=== PATIENT | female | born 1965 | race Caucasian/White ===

== ENCOUNTER → 2019-03-03 11:55 | Outpatient (CLI) | payer OTHER, SELFPAY ==
--- NOTE | ~2019-03-03 | XR_ITS ---
XR hip RT min 2V DATE: 03/03/2019 12:16 INDICATION: Right hip pain TECHNIQUE: AP, lateral, crosstable lateral views of right hip COMPARISON: None FINDINGS: No fracture or dislocation, avascular necrosis or bone destruction. The right hip joint spa ce is well preserved. The pubic symphysis and right sacroiliac joint are intact. Common and superficial femoral as well as abdominal aortic, common iliac and external iliac artery ca lcifications are noted. IMPRESSION: Negative right hip Reviewed, dictated and finalized at location B. IRONER HAND IMPRESSION: Negative right hip
--- NOTE | ~2019-03-03 | XR_ITS ---
XR chest 2V DATE: 03/03/2019 12:16 INDICATION: Cough for one week TECHNIQUE: PA and lateral views COMPARISON: 07/14/2018 2 view chest FINDINGS: Normal heart size. No hilar or mediastinal enlargement. No pulmonary infiltrate or consolid ation, pleural effusion, pulmonary vascular congestion, adenopathy or pneumothorax is detected. IMPRESSION: No active cardiopulmonary disease Reviewed, dictated and finalized at location B. ING HEAD TENDER
== END ==
PROVIDERS: PCP Emergency Medicine; Visit Provider Emergency Medicine
DX: R05 Cough (principal); M25.551 Pain in right hip
CPT/HCPCS: 71046; 73502

== ENCOUNTER 2019-03-22 12:19 | Outpatient (CLI) | payer OTHER, SELFPAY ==
--- NOTE | ~2019-03-22 | MM_ITS ---
EXAMINATION: MM diagnostic mammo unilat RT HISTORY: Architectural distortion suggested on screening 02/16/2019 mammogram examination TECHNIQUE: Additional 3-D tomosynthesis images of the right breast were performed and synthetic 2-D i mages were generated. CAD analysis was submitted and interpreted. COMPARISON: 02/16/2019 bilateral digital screening mammogram FINDINGS: No reproducible mass or architectural distortion. Minimal benign calcification. No skin thi ckening or retraction. IMPRESSION: 1. No mammographic evidence of malignancy 2. Routine mammographic screening is recommended. BI-RADS Category 2: Benign finding(s). Reviewed, dictated and finalized at location A. ERCIAL ARTIST
== END 2019-03-22 12:20 | disposition home or self-care (01) ==
LOC: ANHIMG 12:20
PROVIDERS: PCP Emergency Medicine; Visit Provider Emergency Medicine
DX: R92.8 Other abnormal and inconclusive findings on diagnostic imaging of breast (principal)
CPT/HCPCS: 77061; 77065; G0279

== ENCOUNTER 2020-04-14 14:55 | Outpatient (CLI) | payer OTHER, SELFPAY ==
--- NOTE | ~2020-04-14 | MM_ITS ---
EXAMINATION: MM screening levar BI w juli HISTORY: Screening TECHNIQUE: Craniocaudal and mediolateral oblique 3-D tomosynthesis images were obtained and synthetic 2-D images were generated. CAD analysis was submitted and interpreted. COMPARISON: Comparison to multiple prior studies sequentially, with oldest reviewed study dated 10/26. BREAST PARENCHYMAL COMPOSITION: The breasts are heterogeneously dense, which may obscure small masses . FINDINGS: There is no evidence of suspicious mass, calcification, or architectural distortion to sugg est malignancy in either breast. There has been no suspicious interval change. IMPRESSION: 1. No mammographic evidence of malignancy. 2. Recommend routine screening mammography in one year. BI-RADS Category 1: Negative Reviewed, dictated and finalized at location A. N TEACHER
== END 2020-04-14 14:56 | disposition home or self-care (01) ==
LOC: ANHIMG 14:56
PROVIDERS: PCP Emergency Medicine; Visit Provider Emergency Medicine
DX: Z12.31 Encounter for screening mammogram for malignant neoplasm of breast (principal)
CPT/HCPCS: 77063; 77067

== ENCOUNTER 2021-05-18 15:29 | Outpatient (CLI) | payer OTHER, SELFPAY ==
--- NOTE | ~2021-05-18 | MM_ITS ---
EXAMINATION: MM screening levar BI w juli HISTORY: Screening TECHNIQUE: Craniocaudal and mediolateral oblique 3-D tomosynthesis images were obtained and synthetic 2-D images were generated. CAD analysis was submitted and interpreted. COMPARISON: Comparison to multiple prior studies sequentially, with oldest reviewed study dated 10/26. BREAST PARENCHYMAL COMPOSITION: The breasts are heterogenously dense, which may obscure small masses FINDINGS: There is no evidence of suspicious mass, calcification, or architectural distortion to sugg est malignancy in either breast. There has been no suspicious interval change. IMPRESSION: 1. No mammographic evidence of malignancy. 2. Recommend routine screening mammography in one year. BI-RADS Category 1: Negative Reviewed, dictated and finalized at location A.
== END 2021-05-18 15:30 | disposition home or self-care (01) ==
LOC: ANHIMG 15:31
PROVIDERS: PCP Emergency Medicine; Visit Provider Emergency Medicine
DX: Z12.31 Encounter for screening mammogram for malignant neoplasm of breast (principal)
CPT/HCPCS: 77063; 77067

== ENCOUNTER → 2021-10-20 08:47 | Outpatient (CLI) | payer OTHER, SELFPAY ==
--- NOTE | ~2021-10-20 | XR_ITS ---
XR elbow LT min 3V DATE: 10/20/2021 09:21 INDICATION: Fall down steps. Left elbow injury, pain TECHNIQUE: 3 views COMPARISON: None FINDINGS: No fracture or dislocation or joint effusion. No periosteal reaction or bone destruction. IMPRESSION: Negative Reviewed, dictated and finalized at location A. IMPRESSION: Negative
--- NOTE | ~2021-10-20 | XR_ITS ---
XR shoulder LT min 2V DATE: 10/20/2021 09:21 INDICATION: Fall down steps. Left shoulder pain TECHNIQUE: 4 views COMPARISON: None FINDINGS: There is osteopenia. Normal alignment at the acromioclavicular and glenohumeral joints. No fracture or dislocation, perios teal reaction or bone destruction. IMPRESSION: No fracture or dislocation Reviewed, dictated and finalized at location A. IMPRESSION: No fracture or dislocation
--- NOTE | ~2021-10-20 | XR_ITS ---
XR cervical spine 4-5V DATE: 10/20/2021 09:21 INDICATION: Neck, left shoulder and left elbow pain following a fall 2 months ago TECHNIQUE: AP, open-mouth, lateral and swimmer views COMPARISON: None FINDINGS: There is straightening of the supraspinatus may be due to muscle spasm. C1 and C2 are normally aligned and the odontoid process is intact. No fracture or dislocation or lock ed facet or prevertebral soft tissue swelling. There is moderate loss of interspace height at C3-4. There is moderately severe degenerative disc disease and mild posterior spurring at C4-5. Moderately prominent degenerative disc disease at C5-6. Moderately severe degenerative disease at C6-7. There is uncovertebral joint spurring in the mid and lower cervical spine. IMPRESSION: Straightening of the cervical spine which may be due to muscle spasm Multilevel degenerative disc disease, most pronounced at C4-5 and C6-7 Uncovertebral joint spurring of the mid and lower cervical spine Reviewed, dictated and finalized at location A. IMPRESSION: Straightening of the cervical spine which may be due to muscle spas m Multilevel degenerative disc disease, most pronounced at C4-5 and C6-7 Uncovertebral joint spurring of the mid and lower cervical spine
== END ==
PROVIDERS: PCP Emergency Medicine; Visit Provider Emergency Medicine
DX: M25.512 Pain in left shoulder (principal); M25.522 Pain in left elbow; M50.322 Other cervical disc degeneration at C5-C6 level; M50.323 Other cervical disc degeneration at C6-C7 level
CPT/HCPCS: 72050; 73030; 73080

== ENCOUNTER → 2021-11-23 15:08 | Outpatient (CLI) | payer OTHER, SELFPAY ==
--- NOTE | ~2021-11-23 | XR_ITS ---
EXAMINATION: XR forearm RT 2V, XR wrist RT min 3V, XR hand RT min 3V DATE: 11/23/2021 15:24 INDICATION: Right forearm, hand and wrist pain TECHNIQUE: 1. AP an lateral views of the right forearm were obtained. 2. Posteroanterior, ulnar deviation, oblique, and lateral views of the right wrist were obtained. 3. Dorsal palmar, oblique and lateral views of the right hand were obtained. COMPARISON: None. FINDINGS: Diffuse osteopenia. Normal alignment at the right elbow, wrist and hand. No fracture identified. Mil d polyarticular osteoarthritis at the distal interphalangeal joints. Remaining joint spaces in the mo re proximal hand, wrist and elbow are relatively preserved. No erosions. No elbow joint effusion. Sof t tissues are unremarkable. IMPRESSION: 1. Diffuse osteopenia and mild osteoarthritis at the distal interphalangeal joints. Otherwise unremar kable right forearm, wrist and hand radiographs. Reviewed, dictated and finalized at location B. IMPRESSION: 1. Diffuse osteopenia and mild osteoarthritis at the distal interphalangeal serina nts. Otherwise unremarkable right forearm, wrist and hand radiographs. IMPRESSION: 1. Diffuse osteopenia and mild osteoarthritis at the distal interphalangeal serina nts. Otherwise unremarkable right forearm, wrist and hand radiographs.
== END ==
PROVIDERS: PCP Emergency Medicine; Visit Provider Emergency Medicine
DX: M19.041 Primary osteoarthritis, right hand (principal); M85.841 Other specified disorders of bone density and structure, right hand
CPT/HCPCS: 73090; 73110; 73130

== ENCOUNTER 2022-01-11 08:56 | Outpatient (CLI) | payer OTHER, SELFPAY ==
--- NOTE | ~2022-01-11 | DEXA_ITS ---
Bone Density Report Name: ARPAN MARCUM Age: 56 Sex: Female Ethnicity: White Date of : 1965 Indication: postmenopausal; screening for osteoporosis; history of glucocorticoids; Referring Provider: ALBINA JOHNSON Study: Bone densitometry was performed. Exam Date: January 11, 2022 Accession number: [id number] Bone Density: Region BMD T-score Z-score Classification AP Spine(L1, L2, L3) 0.829 -1.7 -0.6 Osteopenia Femoral Neck (Left) 0.623 -2.0 -0.9 Osteopenia Total Hip (Left) 0.683 -2.1 -1.3 Osteopenia Femoral Neck (Right) 0.598 -2.3 -1.1 Osteopenia Total Hip (Right) 0.636 -2.5 -1.7 Osteoporosis Total Hip Mean 0.660 -2.3 -1.5 Osteopenia World Health Organization criteria for BMD impression classify patients as: Normal (T-score at or above -1.0), Osteopenia (T-score between -1.0 and -2.5), or Osteoporosis (T-score at or below -2.5). 10-year Fracture Risk: FRAX not reported because: Some T-score for Spine Total or Hip Total or Femoral Neck at or below -2.5 Clinical Information Provided by Patient: Smokes Has taken Glucocorticoids Has used the following medications: Vitamin D Patient maximum height was 62 Menopause Age: 46 Drinks caffeinated beverages Onset of menses at age 12 Number of children 0 Impression: The patient has osteoporosis, based on the Right Total Hip T-score. The patient has risk factors, including: smoking, history of glucocorticoid therapy. Discussion: INCREASED RISK OF FRACTURE. BONE DENSITY IS UNDESIRABLY LOW AT ONE OR MORE SKELETAL SITES, CONSISTENT WITH POSTMENOPAUSAL OSTEOPOROSIS. This patient's lowest T-score meets the World Health Organization's (WHO) criteria for osteoporosis at one or more sites (T-score -2.5 or below). In untreated patients, the risk of osteoporotic fracture increases approximately two-fold for each 1.0 SD decrease in T-score. Low bone density is not the only risk factor for fracture; also consider factors such as patient's age, frailty or poor health, risk of falling, risk of injury, previous osteoporotic fracture, family history of osteoporosis, cigarette smoking, low body weight, etc. Not everyone with low bone mineral density has osteoporosis; osteomalacia and other metabolic bone disorders should also be considered. Patients who have osteoporosis should be evaluated for specific diseases and conditions (secondary causes) that may cause or contribute to bone loss. The [place] [employer]ocrin[employer] (AACE) and National Osteoporosis Foundation (NOF) recommend pharmacologic intervention for all postmenopausal women whose T-score is in this range. The patient should follow a healthful lifestyle (good nutrition with adequate calcium and vitamin D, and appropriate weight-bearing exercise). Follow-Up: Consider a repeat BMD and Vertebr
== END 2022-01-11 08:57 | disposition home or self-care (01) ==
PROVIDERS: PCP Emergency Medicine; Visit Provider Emergency Medicine
DX: M85.88 Other specified disorders of bone density and structure, other site (principal); M85.852 Other specified disorders of bone density and structure, left thigh; M85.851 Other specified disorders of bone density and structure, right thigh
CPT/HCPCS: 77080

== ENCOUNTER 2022-01-12 10:05 | Emergency (ER) | payer OTHER, SELFPAY ==
--- NOTE | 2022-01-12 10:08 | ED.BACK ---
HPI - Back Pain/Injury General Chief Complaint: Back Pain/Injury Stated Complaint: back pain Time Seen by Provider: 01/12/22 11:19 Source: patient and RN notes reviewed Mode of arrival: ambulatory Limitations: no limitations History of Present Illness HPI Narrative: 56-year-old female presents concern pain between right neck and shoulder. She denies any injury or trauma. She she had problems with her back in the past, she is under the care of her doctor for this. She reports this pain has been happening for 2-3 days. She reports has similar pain in the past. She reports she can not take NSAIDs due to history of GI bleeding. She denies weakness in any extremity. Denies fever, headaches. MD elicited complaint: back pain Related Data Home Medications Medication Instructions Recorded Confirmed simvastatin 20 mg tablet 20 mg PO HS 02/22/19 01/12/22 Allergies Allergy/AdvReac Type Severity Reaction Status Date / Time aspirin Allergy Unknown GI upset Verified 01/12/22 10:55 Penicillins Allergy Unknown GI upset Verified 01/12/22 10:55 NSAIDS (Non-Steroidal AdvReac Severe Gastrointestinal Verified 01/12/22 11:26 Anti-Inflamma Upset Review of Systems Review of Systems: CONSTITUTIONAL: Denies malaise, chills, sweats, or fever. CARDIOVASCULAR: Denies chest pain, palpitations, or edema. RESPIRATORY: Denies cough or dyspnea. GASTROINTESTINAL: Denies abdominal pain, nausea, vomiting, diarrhea, loss of bowel function GENITOURINARY: Denies dysuria, hematuria, frequency, loss of bladder function. SKIN: Denies rash or itching. MUSCULOSKELETAL: Reports pain between the right neck in the shoulder NEUROLOGIC: Denies numbness, weakness, or headache. All systems reviewed & are unremarkable except as noted in HPI and below [facility] Past Medical History Medical History (Updated 01/12/22 @ 11:27 by Joslyn Saavedra NP) Blind left eye HLD (hyperlipidemia) Hx of pancreatitis Vascular calcification Surgical History Surgical History (Updated 02/22/19 @ 09:51 by Jaja Blas) No pertinent past surgical history Family History Family History Grandparent Colon cancer Tuberculosis Father Acute myocardial infarction, Onset Age: 31 Mother Hypertension Tremor Other Family history of cardiovascular disease Family history of malignant neoplasm Family history of tuberculosis Social History Social History (Updated 02/22/19 @ 12:44 by Davide Hutchison MD) Social History: Patient smoked tobacco a pack a day for about 40 years. She quit 4 months ago. She denies alcohol use. She does smoke marijuana. She lives home with . She is a full code. She nominates her Ronnie to be the individual making medical decisions for her if she is unable Smoking packs per day: 0.5 Smoking cigarettes per day: 10.0 Years smoked: 42 Smoking pack-years: 21.00 Smoking status: Former smoker Smoking end date: 11/10/18 Alcohol intake: never Substance use: current Substance use type: marijuana Gender identity (if verbalized by the patient): Female Spiritual care concerns: No Agree to blood products: Yes Comments At time of signature, agree with nursing past medical, surgical, social and family history. There is no relevant family history pertinent to the presenting complaint Exam Narrative: GENERAL: Well-appearing, well-nourished, and in no acute distress. HEAD: Normocephalic, atraumatic. EYES: PERRLA and EOMI. NECK: Supple. No lymphadenopathy. CHEST: Clear to auscultation. No respiratory distress. HEART: Regular rate and rhythm. Distal pulses palpable and equal, cap refill <3 seconds MUSCULOSKELETAL: Grossly Normal range of motion and strength in all extremities; 5/5 strength with shoulder abduction, adduction, flexion, extension. Normal sensation in dermatomal distributions with sensitivity to light touch and pain. No midline neck te
[2022-01-12 10:37] VITALS: BP 145/87; PULSE 106; RESP 16; TEMP 36.3; O2SAT 98
== END 2022-01-12 11:40 | disposition home or self-care (01) ==
PROVIDERS: Emergency Provider Nurse Practitioner; PCP Emergency Medicine
DX: S46.811A Strain of other muscles, fascia and tendons at shoulder and upper arm level, right arm, initial encounter (principal); X58.XXXA Exposure to other specified factors, initial encounter; E78.5 Hyperlipidemia, unspecified; H54.40 Blindness, one eye, unspecified eye; Z87.891 Personal history of nicotine dependence; F12.90 Cannabis use, unspecified, uncomplicated
CPT/HCPCS: 99213; G0463

== ENCOUNTER → 2022-07-09 11:57 | Outpatient (CLI) | payer OTHER, SELFPAY ==
--- NOTE | ~2022-07-09 | XR_ITS ---
Right Humerus Technique: AP and lateral views were obtained. Clinical History: Lump Findings: No fracture or dislocation is seen. Osseous alignment is anatomic. Visualized joint spaces are grossly preserved. Soft tissues are unremarkable. Impression: Unremarkable examination. No fracture or dislocation. If there is persistent clinical concern for sof t tissue mass, consider MR for further evaluation. Reviewed, dictated and finalized at location . Impression: Unremarkable examination. No fracture or dislocation. If there is persistent cl inical concern for soft tissue mass, consider MR for further evaluation.
== END ==
PROVIDERS: PCP Emergency Medicine; Visit Provider Emergency Medicine
DX: R22.31 Localized swelling, mass and lump, right upper limb (principal)
CPT/HCPCS: 73060

== ENCOUNTER 2022-09-27 14:50 | Outpatient (CLI) | payer BC, OTHER, SELFPAY ==
--- NOTE | ~2022-09-27 | MM_ITS ---
EXAMINATION: MM screening levar BI w juli HISTORY: Screening TECHNIQUE: Craniocaudal and mediolateral oblique 3-D tomosynthesis images were obtained and synthetic 2-D images were generated. CAD analysis was submitted and interpreted. COMPARISON: Comparison to multiple prior studies sequentially, with oldest reviewed study dated 05/2016. BREAST PARENCHYMAL COMPOSITION: The breasts are heterogeneously dense, which may obscure small masses FINDINGS: There is no evidence of suspicious mass, calcification, or architectural distortion to sugg est malignancy in either breast. There has been no suspicious interval change. IMPRESSION: 1. No mammographic evidence of malignancy. 2. Recommend routine screening mammography in one year. BI-RADS Category 1: Negative Reviewed, dictated and finalized at location A.
== END 2022-09-27 14:51 | disposition home or self-care (01) ==
LOC: ANHIMG 14:52
PROVIDERS: PCP Emergency Medicine; Visit Provider Emergency Medicine
DX: Z12.31 Encounter for screening mammogram for malignant neoplasm of breast (principal)
CPT/HCPCS: 77063; 77067

== ENCOUNTER → 2022-10-01 08:34 | Outpatient (CLI) | payer OTHER, SELFPAY ==
--- NOTE | ~2022-10-01 | XR_ITS ---
[id number] 10/01/2022 15:56 INDICATION: Left knee pain PROCEDURE: 2 views left knee COMPARISON: No prior studies for comparison. FINDINGS: Fracture, dislocation or subluxation is not identified. No significant joint effusion. Ther e is atherosclerosis. The soft tissues appear within normal limits. No foreign bodies are identified . IMPRESSION: 1: NO ACUTE BONE OR JOINT ABNORMALITY IDENTIFIED. Reviewed, dictated and finalized at location L.
--- NOTE | ~2022-10-01 | XR_ITS ---
EXAMINATION: XR wrist LT 2V INDICATION: Left wrist pain TECHNIQUE: Two views of the left wrist are obtained. COMPARISON: None available FINDINGS: There is avascular necrosis and collapse of the proximal scaphoid. No acute fracture is nathan ntified. The soft tissues are unremarkable. IMPRESSION: 1. 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 Reviewed, dictated and finalized at location A.
--- NOTE | ~2022-10-01 | XR_ITS ---
XR ankle LT 2V 10/01/2022 15:56 INDICATION: Left ankle pain PROCEDURE: 2 views left ankle COMPARISON: No prior studies for comparison. FINDINGS: Fracture, dislocation or subluxation is not identified. There is an accessory ossicle at th e medial malleolus. The soft tissues appear within normal limits. No foreign bodies are identified. IMPRESSION: 1: NO ACUTE BONE OR JOINT ABNORMALITY IDENTIFIED. Reviewed, dictated and finalized at location L.
== END ==
PROVIDERS: PCP Emergency Medicine; Visit Provider Emergency Medicine
DX: M25.572 Pain in left ankle and joints of left foot (principal); M25.562 Pain in left knee; M25.532 Pain in left wrist
CPT/HCPCS: 73100; 73560; 73600